=== PATIENT | female | born 1955 | race Hispanic/Latino ===

== ENCOUNTER 2021-01-20 08:22 | Emergency (ER) | payer BC ==
[~2021-01-20] VITALS: Ht 157.5 cm; Wt 92.0 kg
[2021-01-20] MEDS ORDERED: ASPIRIN81 MG PO (08:38)
[2021-01-20] MEDS ORDERED: LOSARTAN POTASS50 MG PO (08:38)
[2021-01-20] MEDS ORDERED: METFORMIN HCL1000 MG PO (08:38)
[2021-01-20] MEDS ORDERED: KEFLEX500 MG PO (08:50)
[2021-01-20 09:10] VITALS: BP 174/89
== END 2021-01-20 09:20 | disposition home or self-care (01) | DRG 605 ==
LOC: ED 08:22
DX: S91.332A Puncture wound without foreign body, left foot, initial encounter (principal); I83.90 Asymptomatic varicose veins of unspecified lower extremity; E11.9 Type 2 diabetes mellitus without complications; I10 Essential (primary) hypertension; Z79.84 Long term (current) use of oral hypoglycemic drugs; W22.8XXA Striking against or struck by other objects, initial encounter; Y93.89 Activity, other specified; Z79.82 Long term (current) use of aspirin